=== PATIENT | male | born 1985 | race Asian ===

== ENCOUNTER 2024-02-29 15:17 | Emergency (ER) | payer SELFPAY ==
--- NOTE | 2024-02-29 15:22 | EDRN ---
this RN attempted to call the pt into the triage room to triage the pt, the pt is outside of the ER looking at the solar eclipse, the pt will not come back into the ER until it is 'complete'
[2024-02-29 15:28] VITALS: BP 137/98; BMI 29.6
[2024-02-29] MEDS: BENADRYL 25 MG PO (16:50)
[2024-02-29] MEDS: DELTASONE 50 MG PO (16:50)
[2024-02-29] MEDS: ZYRTEC 10 MG PO (16:53)
--- NOTE | 2024-02-29 16:54 | ED.GENMED ---
History of Present Illness
General
Chief Complaint: Eye Problems
Source: patient
Exam Limitations: none
Time Seen by Provider: 02/29/24 16:19
Nursing documentation reviewed up to this point in time: agreed with
Travel History
Have you had any contact with someone who has COVID-19?: No
Do you have any symptoms of coronavirus? Fever > 100 degrees, chills, cough, shortness of breath, sore throat, loss of taste or smell, muscle aches, or headache?: No
History of Present Illness
History of Present Illness:
39-year-old male with no significant chronic medical issues presents for evaluation of redness and puffiness around his eyes. Patient reports this has been an ongoing issue for the past 2 weeks. He reports that he has itchiness, dryness, redness
of the eyelids and underneath the eyes bilaterally. He says he has been applying lotion thinking that it was from dry eye but this has not helped. He denies any exposures�denies any new soaps or lotions for his face. He says that he has not had
pain or redness in the eyes themselves, no loss of vision or blurry vision. He has not noticed any other symptoms. He has not had any fevers or chills.
Past History
Past History
ED Past Medical History: None
ED Past Surgical History: None
Social History
Tobacco: Smoker
Alcohol: Occasional
Personal:
Living: with family
Review of Systems
Review of Systems
All Other Systems: ROS reviewed and negative except as documented in HPI and ROS
Constitutional: Denies fever or chills
EENT: Reports other (Puffiness and redness around the eyes); Denies sore throat or runny nose
Respiratory: Denies cough
Phy Exam
Physical Exam
Physical Exam:
General: Awake, alert; no acute distress
Head: Normocephalic, atraumatic
Eyes: Patient has very slight conjunctival injection bilaterally, pupils are equal round and reactive to light bilaterally, extraocular movements are intact without pain; patient has some slight erythema and puffiness of the eyelids bilaterally as
well as in the infraorbital region, no induration or warmth, no tenderness
Ears: TMs clear bilaterally
Nose: No swelling of the turbinates and no rhinorrhea or discharge
Throat: Airway intact, handling secretions
Neck: Trachea midline, good range of motion
Lungs: Breathing comfortably no distress
Heart: Tachycardia
Neuro: No gross deficits
Scores
Heart Failure Risk
Heart Failure Risk Score: Not Applicable
Heart Score for Chest Pain Patients
STEMI patient?: Not applicable
Withdrawal Assessment of Alcohol
Withdrawal Assessment Completed?: Not applicable
Course
Orders/Labs/Results
Orders:
Orders
02/29/24 16:26
Visual Acuity- Treatment ONCE
02/29/24 16:33
Diphenhydramine [Benadryl] 25 mg PO NOW STA
Prednisone [Deltasone] 50 mg PO NOW STA
02/29/24 16:41
Cetirizine HCl [Zyrtec] 10 mg PO NOW STA
Vital Signs
Initial and Last Documented VS:
Initial Vital Signs
Temp Pulse Resp BP Pulse Ox
36.7 C 113 16 137/98 98
02/29/24 15:28 02/29/24 15:28 02/29/24 15:28 02/29/24 15:28 02/29/24 15:28
Last Documented Vital Signs
Temp Pulse Resp BP Pulse Ox
36.7 C 113 16 137/98 98
02/29/24 15:28 02/29/24 15:28 02/29/24 15:28 02/29/24 15:28 02/29/24 15:28
MDM/Problems Addressed
Differential Diagnosis Includes:
Allergic conjunctivitis, preseptal cellulitis, blepharitis, chalazion
MDM/Problems Addressed:
39-year-old male presents for puffiness and itching around the eyes bilaterally over the past week or 2. Exam as above. Picture seems most consistent with an allergic conjunctivitis. Bilateral nature and appearance are inconsistent with a
preseptal cellulitis and there is no pain with extraocular movements to suggest an orbital cellulitis. He has no signs of chalazion or blepharitis, exam seems most consistent with an allergic conjunctivitis. Will treat with steroid and
antihistamines. Will have him follow-up with PCP as an outpatient.
*Pulse Oximetry
Patient hypoxic: no
*Critical Care Note
Total Time (30-74mins, 75-104mins- exclusive of procedures): Not Applicable
Data Reviewed
Source: patient
ED Attending Note
-
Portions of this chart may have been created with voice recognition software.� Occasional wrong word or��sound alike� substitutions may have occurred due to the inherent limitations of voice recognition software.
Discharge Plan
Departure
Patient Disposition: Home (Routine Discharge)
Date of Disposition: 02/29/24
Time of Disposition: 17:02
Patient with high blood pressure during this ER visit?: No
Discharge Problem:
Acute allergic conjunctivitis of both eyes
Instructions: Conjunctivitis (Noninfectious Pinkeye) (DC)
Prescriptions:
New
prednisone 50 mg tablet
50 mg PO DAILY Qty: 4 0RF
cetirizine [Zyrtec] 10 mg tablet
10 mg PO DAILY PRN (Reason: allergy symptoms) Qty: 10 0RF
diphenhydramine HCl [Benadryl Allergy] 25 mg tablet
25 mg PO HS PRN (Reason: allergy symptoms) Qty: 10 0RF
Referrals:
Tenzin Tinsley MD [Active] - As needed (Ophthalmology--as needed for continued symptoms)
NONE,* [Family Provider] -
Activity Restrictions/Additional Instructions:
Thank you for visiting the Emergency Department at [facility].
1. Please schedule a follow up appointment as directed. Call first thing tomorrow morning to make an appointment.
2. If indicated, please take your medications as instructed and indicated on discharge paperwork.
3. If any of your symptoms do not improve, or persist, or become more severe within 6-12 hours, please return to the emergency department for further care.
4. Please return to the emergency department if you develop a headache, neck pain/stiffness, fever greater than 100.4F, chest pain, shortness of breath, persistent nausea, vomiting, slurred speech, difficulty walking, numbness/tingling, weakness,
signs of infection or any other symptoms that are worrisome to you.
Please call [phone] if you have any questions.
Interventions
Interventions:
*Risk Screen - Suicide Last Done: 02/29/24 15:28
*General Assessment Last Done: 02/29/24 16:18
*Neglect/Abuse Screening Last Done: 02/29/24 16:18
*ED COVID-19 Vaccine History Last Done: 02/29/24 15:28
Discharge Date and Time
Print Language: THAI
[2024-02-29 17:08] VITALS: BP 137/94
[2024-02-29 17:10] VITALS: BP 137/94
== END 2024-02-29 17:10 | disposition home or self-care (01) ==
LOC: EMR 15:17
PROVIDERS: EMERGENCY PHYSICIAN Emergency Medicine
DX: H10.13 Acute atopic conjunctivitis, bilateral (principal); F17.200 Nicotine dependence, unspecified, uncomplicated
CPT/HCPCS: 99283